=== PATIENT | male | born 2000 | race Caucasian/White ===

== ENCOUNTER 2022-01-14 21:36 | Emergency (ER) | payer OTHER ==
[2022-01-14] MEDS ORDERED: PROMETHAZINE INJ 25 MG/ML AMP ONE (22:02)
[2022-01-14] MEDS ORDERED: HYDROMORPHONE HCL 2 MG/ML inj ONE (22:03)
[2022-01-14] MEDS ORDERED: IBUPROFEN 400 MG TAB ONE (23:39)
[2022-01-14] MEDS ORDERED: ACETAMINOPHEN 500 MG TAB ONE (23:39)
--- NOTE | 2022-01-15 00:32 | ER ---
Nurse's Notes [facility] Name: oJe Manuel Age: 21 yrs Sex: Male : 2000 Arrival Date: 01/14/2022 Time: 21:40 Bed DIS5 Private MD: Diagnosis: Pain in left shoulder Presentation: 01/14 22:13 Chief complaint: Patient states: INJURED MY LEFT SHOULDER WORKING ON A BOAT ABOUT TWO 1 HOURS AGO. Coronavirus screen: Vaccine status: Patient reports receiving the 2nd dose of the covid vaccine. At this time, the client does not indicate any symptoms associated with coronavirus-19. Ebola Screen: Patient negative for fever greater than or equal to 101.5 degrees Fahrenheit, and additional compatible Ebola Virus Disease symptoms. Initial Sepsis Screen: Does the patient meet any 2 criteria? No. Patient's initial sepsis screen is negative. Does the patient have a suspected source of infection? No. Patient's initial sepsis screen is negative. Risk Assessment: Do you want to hurt yourself or someone else? Patient reports no desire to harm self or others. Onset of symptoms was January 14, 2022. 22:13 Method Of Arrival: Ambulatory [facility] 22:13 Acuity: OLGA 4 merged with [facility] Triage Assessment: 22:14 General: Appears in no apparent distress. uncomfortable, Behavior is calm, cooperative, merged with [facility] appropriate for age. Pain: Complains of pain in anterior aspect of left shoulder and left bicep. Musculoskeletal: Reports pain in right arm. Injury Description: CONTUSION. Historical: - Allergies: 22:14 NKDA; merged with [facility] - Home Meds: 22:14 None [Active]; 1 - PMHx: 22:14 None; merged with [facility] - PSHx: 22:14 None; merged with [facility] - Immunization history:: Adult Immunizations up to date. - Social history:: Smoking status: Reported history of juuling and/or vaping. Screenin:48 Abuse screen: Denies threats or abuse. Denies injuries from another. Nutritional 1 screening: No deficits noted. Tuberculosis screening: No symptoms or risk factors identified. Fall Risk None identified. Assessment: 23:48 General: Appears in no apparent distress. Behavior is appropriate for age. Pain: lp1 Complains of pain in left shoulder Pain currently is 7 out of 10 on a pain scale. Quality of pain is described as aching, Aggravated by increased activity. Neuro: Level of Consciousness is awake, alert, obeys commands, Oriented to person, place, time, situation. Cardiovascular: Patient's skin is warm and dry. Respiratory: Respiratory effort is even, unlabored. GI: No signs and/or symptoms were reported involving the gastrointestinal system. : No signs and/or symptoms were reported regarding the genitourinary system. EENT: No signs and/or symptoms were reported regarding the EENT system. Derm: Skin is pink, warm \T\ dry. Musculoskeletal: Circulation, motion, and sensation intact. Reports pain in left shoulder. Vital Signs: 22:13 BP 156 / 85; Pulse 70; Resp 18; Temp 99.1(TE); Pulse Ox 99% on R/A; Weight 131.54 kg; 1 Height 6 ft. 4 in. (193.04 cm); Pain 5/10; 22:13 Body Mass Index 35.30 (131.54 kg, 193.04 cm) merged [facility] ED Course: 21:40 Patient arrived in ED. ja2 22:14 Triage completed. 1 22:14 Arm band placed on right wrist. merged with [facility] 23:04 Mamadou Sexton PA is PHCP. cp 23:04 Mike Lakhani MD is Attending Physician. cp 23:49 Patient has correct armband on for positive identification. lp1 23:49 No provider procedures requiring assistance completed. Patient did not have IV access lp1 during this emergency room visit. 23:57 XRAY Shoulder LEFT 2 view In Process Unspecified. EDMS Administered Medications: 23:34 Drug: Ibuprofen 800 mg Route: PO; lp1 01/15 00:42 Follow up: Response: No adverse reaction merged [facility] 01/14 23:34 Drug: Tylenol 1000 mg Route: PO; lp1 01/15 00:42 Follow up: Response: No adverse reaction merged [facility] Medication: 01/14 23:49 VIS not applicable for this client. 1 Outcome: 01/15 00:31 Discharge ordered by . cp 00:42 Discharged to home ambulatory. merged [facility] 00:42 Condition: good 00:42 Discharge instructions given to patient, Instructed on discharge instructions, follow up and referral plans. Demonstrated understanding of instructions, follow-up care, medications, Prescriptions given X 1. 00:42 Patient left the ED. merged with [facility] Signatures: Dispatcher [employer] Cynthia Wallis RN RN 1 Mamadou Sexton PA PA cp Alexander, Jessica ja2 Hicks, Barbara, RN RN bh1
--- NOTE | 2022-01-15 00:33 | EDPHYS ---
Physician Documentation [facility] Name: Jeo Manuel Age: 21 yrs Sex: Male : 2000 Arrival Date: 01/14/2022 Time: 21:40 Bed DIS5 Private MD: ED Physician Mike Lakhani HPI: 01/14 23:05 This 21 yrs old Male presents to ER via Ambulatory with complaints of Shoulder Injury. cp 23:05 The patient or guardian complains of an injury, pain, that is acute. left shoulder. cp 23:05 Context: Patient reports he was at work using cheater bar when tension on bar suddenly cp forced shoulder upward. Patient reporting pain to left shoulder that radiates down arm. Historical: - Allergies: 22:14 NKDA; bh1 - Home Meds: 22:14 None [Active]; bh1 - PMHx: 22:14 None; bh1 - PSHx: 22:14 None; bh1 - Immunization history:: Adult Immunizations up to date. - Social history:: Smoking status: Reported history of juuling and/or vaping. ROS: 23:10 Constitutional: Negative for body aches, chills, fever, poor PO intake. cp 23:10 Neck: Negative for pain with movement, pain at rest, stiffness. cp 23:10 Cardiovascular: Negative for chest pain, edema, palpitations. 23:10 Back: Negative for pain at rest, pain with movement. 23:10 MS/extremity: Positive for pain, tenderness, of the left shoulder, Negative for decreased range of motion. 23:10 Respiratory: Negative for cough, shortness of breath, wheezing. cp 23:10 Eyes: Negative for injury, pain, redness, and discharge. cp 23:10 ENT: Negative for drainage from ear(s), ear pain, sore throat, difficulty swallowing, difficulty handling secretions. 23:10 Abdomen/GI: Negative for abdominal pain, nausea, vomiting, and diarrhea. 23:10 Neuro: Negative for altered mental status, dizziness, headache, numbness, syncope, weakness. 23:10 All other systems are negative. Exam: 23:15 Constitutional: The patient appears in no acute distress, alert, awake, cp non-diaphoretic, non-toxic, well developed, well nourished, obese. 23:15 Head/Face: Normocephalic, atraumatic. cp 23:15 Eyes: Periorbital structures: appear normal, Conjunctiva: normal, no exudate, no injection, Sclera: no appreciated abnormality, Lids and lashes: appear normal, bilaterally. 23:15 ENT: External ear(s): are unremarkable, Nose: is normal, Mouth: Lips: moist, Oral mucosa: moist, Posterior pharynx: Airway: no evidence of obstruction, patent. 23:15 Neck: C-spine: vertebral tenderness, is not appreciated, crepitus, is not appreciated, ROM/movement: is normal, is supple, without pain, no range of motions limitations. 23:15 Chest/axilla: Inspection: normal, Palpation: crepitus, is not appreciated, tenderness, that is mild, that is moderate, of the lateral left clavicle, that partially reproduces the patient's complaints. 23:15 Cardiovascular: Rate: normal, Rhythm: regular. 23:15 Respiratory: the patient does not display signs of respiratory distress, Respirations: normal, no use of accessory muscles, no retractions, labored breathing, is not present, Breath sounds: are clear throughout, no decreased breath sounds, no stridor, no wheezing. 23:15 Back: pain, is absent, ROM is normal. 23:15 Musculoskeletal/extremity: Extremities: grossly normal except: noted in the anterior aspect of left shoulder and lateral left shoulder: pain, tenderness, ROM: limited passive range of motion due to pain, in the left shoulder, Pulses: noted to be 2+ in the left radial artery, the left arm Sensation intact. 23:15 Neuro: Orientation: to person, place \T\ time. Mentation: is normal. Vital Signs: 22:13 BP 156 / 85; Pulse 70; Resp 18; Temp 99.1(TE); Pulse Ox 99% on R/A; Weight 131.54 kg; bh1 Height 6 ft. 4 in. (193.04 cm); Pain 5/10; 22:13 Body Mass Index 35.30 (131.54 kg, 193.04 cm) bh1 MDM: 23:10 Patient medically screened. cp 23:30 Differential diagnosis: tendonitis, clavicle fracture, AC joint injury, rotator cuff cp injury, dislocation. 01/15 00:08 Test interpretation: by ED physician or midlevel provider: xrays of left shoulder cp negative for fracture. 00:30 Data reviewed: vital signs, nurses notes, radiologic studies, plain films. cp 00:30 Counseling: I had a detailed discussion with the patient and/or guardian regarding: the cp historical points, exam findings, and any diagnostic results supporting the discharge/admit diagnosis, radiology results, the need for outpatient follow up, a orthopedic surgeon, to return to the emergency department if symptoms worsen or persist or if there are any questions or concerns that arise at home. Response to treatment: the patient's symptoms have mildly improved after treatment, and as a result, I will discharge patient. 01/14 23:09 Order name: XRAY Shoulder LEFT 2 view cp Administered Medications: 01/14 23:34 Drug: Ibuprofen 800 mg Route: PO; [facility] 01/15 00:42 Follow up: Response: No adverse reaction [facility] 01/14 23:34 Drug: Tylenol 1000 mg Route: PO; [facility] 01/15 00:42 Follow up: Response: No adverse reaction [facility] Disposition: 02:48 Co-signature as Attending Physician, Mike Lakhani MD I agree with the assessment and kdr plan of care. Disposition Summary: 01/15/22 00:31 Discharge Ordered Location: Home cp Problem: new cp Symptoms: have improved cp Condition: Stable cp Diagnosis - Pain in left shoulder cp Followup: cp - With: Private Physician - When: 2 - 3 days - Reason: Recheck today's complaints, recommend follow up with orthopedist Discharge Instructions: - Discharge Summary Sheet cp - Shoulder Pain cp - Shoulder Range of Motion Exercises cp - Form - Excuse from Work, School, or Physical Activity cp Forms: - Medication Reconciliation Form cp - Thank You Letter cp - Antibiotic Education cp - Prescription Opioid Use cp Prescriptions: - Diclofenac Sodium 75 mg Oral Tablet Sustained Release - take 1 tablet by ORAL route 2 times per day; 30 tablet; Refills: 0, Product cp Selection Permitted Signatures: Dispatcher [employer] Mike Root MD MD [facility] Cynthia Truong RN RN 1 Mamadou Sexton PA PA cp Jesica Chong, RN RN 1
[2022-01-15 01:07] VITALS: BP 156/85; TEMP 99.1; O2SAT 99
--- NOTE | 2022-01-15 11:05 | RAD REPORT ---
EXAM DESCRIPTION: X Ray Shoulder Left 2 View; 2 views CLINICAL HISTORY: 21 years Male, PAIN COMPARISON: None. FINDINGS/IMPRESSION: 1. No acute fracture. 2. Humeral head projects over the glenoid in these frontal views. Electronically signed by: Scott Payne MD 01/15/2022 2:30 AM CDT Due to temporary technical issues with the PACS/Fluency reporting system, reports are being signed by the in house radiologists without review as a courtesy to insure prompt reporting. The interpreting radiologist is fully responsible for the content of the report.
== END 2022-01-15 00:42 | disposition home or self-care (01) ==
LOC: ER 21:36
DX: M25.512 Pain in left shoulder (principal)
CPT/HCPCS: 73030; J2550; J1170; 99283

== ENCOUNTER 2022-11-04 04:31 | Emergency (ER) | payer OTHER ==
[2022-11-04] MEDS ORDERED: TRAMADOL HCL 50 MG TAB ONE (05:24)
[2022-11-04] MEDS ORDERED: methocarbamoL 750 MG TAB ONE (05:24)
[2022-11-04] MEDS ORDERED: IBUPROFEN 400 MG TAB ONE (05:25)
--- NOTE | 2022-11-04 06:45 | ER ---
Nurse's Notes [facility] Name: Joe Manuel Age: 22 yrs Sex: Male : 2000 Arrival Date: 11/04/2022 Time: 04:31 Bed 13 Private MD: Diagnosis: Contusion of right shoulder;Acute right shoulder sprain Presentation: 11/04 04:49 Chief complaint: Patient states: fell on right shoulder while at work x 3 weeks ago kl reports pain increasing full ROM noted. Coronavirus screen: Vaccine status: Patient reports receiving the 2nd dose of the covid vaccine. Ebola Screen: Patient negative for fever greater than or equal to 101.5 degrees Fahrenheit, and additional compatible Ebola Virus Disease symptoms. Initial Sepsis Screen: Does the patient meet any 2 criteria? No. Patient's initial sepsis screen is negative. Does the patient have a suspected source of infection? No. Patient's initial sepsis screen is negative. Risk Assessment: Do you want to hurt yourself or someone else? Patient reports no desire to harm self or others. 04:49 Method Of Arrival: Ambulatory 04:49 Acuity: OLGA 4 Triage Assessment: 04:51 General: Appears in no apparent distress. comfortable, Behavior is calm, cooperative. Pain: Complains of pain in anterior aspect of right shoulder Pain radiates to right elbow Pain currently is 6 out of 10 on a pain scale. Quality of pain is described as aching, shooting. Musculoskeletal: Circulation, motion, and sensation intact. Capillary refill < 3 seconds, Range of motion: intact in all extremities, Reports pain in right shoulder. Injury Description: fall. Historical: - Allergies: 04:50 NKDA; kl - Home Meds: 04:50 None [Active]; kl - PMHx: 04:50 None; kl - Immunization history:: Adult Immunizations up to date. - Social history:: Smoking status: Patient denies any tobacco usage or history of. - Family history:: not pertinent. Screenin:[facility] ED Fall Risk Assessment (Adult) History of falling in the last 3 months, vc1 including since admission Yes- single mechanical fall (1 pt) Confusion or Disorientation No (0 pts) Intoxicated or Sedated No (0 pts) Impaired Gait No (0 pts) Mobility Assist Device Used No (0 pt) Altered Elimination No (0 pt) Score/Fall Risk Level 0 - 2 = Low Risk Oriented to surroundings, Maintained a safe environment, Educated pt \T\ family on fall prevention, incl call for assistance when getting out of bed. Abuse screen: Denies threats or abuse. Nutritional screening: No deficits noted. Tuberculosis screening: No symptoms or risk factors identified. Assessment: 05:00 Reassessment: No changes from previously documented assessment. Patient and/or family vc1 updated on plan of care and expected duration. Pain level reassessed. Patient is alert, oriented x 3, equal unlabored respirations, skin warm/dry/pink. see triage assessment. 06:00 Reassessment: No changes from previously documented assessment. Patient and/or family vc1 updated on plan of care and expected duration. Pain level reassessed. Patient is alert, oriented x 3, equal unlabored respirations, skin warm/dry/pink. 06:34 Reassessment: Patient and/or family updated on plan of care and expected duration. Pain vc1 level reassessed. Patient is alert, oriented x 3, equal unlabored respirations, skin warm/dry/pink. Patient states feeling better. Patient states symptoms have improved. Vital Signs: 04:49 BP 143 / 88; Pulse 75; Resp 18; Temp 98.8(O); Pulse Ox 95% on R/A; Weight 131.54 kg kl (R); Height 6 ft. 3 in. ; Pain 6/10; 05:00 BP 121 / 65; Pulse 75; Resp 18; Pulse Ox 91% on R/A; vc1 06:00 BP 109 / 79; Pulse 64; Resp 17; Pulse Ox 96% on R/A; vc1 04:49 Body Mass Index 36.25 (131.54 kg, 190.5 cm) kl 04:49 Pain Scale: Adult kl ED Course: 04:33 Patient arrived in ED. jj6 04:45 Todd Ordonez MD is Attending Physician. sp4 04:50 Triage completed. kl 05:00 Gissel Genao, BETH is Primary Nurse. vc1 05:00 Arm band placed on right wrist. vc1 05:00 Patient has correct armband on for positive identification. Bed in low position. Call vc1 light in reach. Pulse ox on. NIBP on. 05:09 Shoulder Right (2 View) XRAY In Process Unspecified. EDMS 06:44 Jhon Chappell MD is Referral Physician. sp4 07:11 No provider procedures requiring assistance completed. Patient did not have IV access ko1 during this emergency room visit. Sling applied to right arm. Administered Medications: 05:24 Drug: Ibuprofen PO 800 mg Route: PO; vc1 05:24 Drug: traMADol PO 100 mg Route: PO; vc1 05:24 Drug: Methocarbamol PO 1500 mg Route: PO; vc1 Medication: 06:37 VIS not applicable for this client. vc1 Outcome: 06:45 Discharge ordered by . sp4 07:11 Discharged to home ambulatory. ko1 07:11 Condition: stable 07:11 Discharge instructions given to patient, Instructed on discharge instructions, follow up and referral plans. medication usage, Demonstrated understanding of instructions, follow-up care, medications, Prescriptions given X 2. 07:11 Patient left the ED. ko1 Signatures: Dispatcher [employer] EDDC Racheal Vick RN RN kl Jeffries, Jennifer jj6 Gissel Genao RN RN vc1 Chloé House RN RN ko1 Todd Ordonez MD MD sp4
--- NOTE | 2022-11-04 06:45 | EDPHYS ---
Physician Documentation [facility] Name: Joe Manuel Age: 22 yrs Sex: Male : 2000 Arrival Date: 11/04/2022 Time: 04:31 Bed 13 Private MD: ED Physician Todd Ordonez HPI: 11/04 04:45 This 22 yrs old Male presents to ER via Unassigned with complaints of sp4 Shoulder Injury. 06:31 The patient has not experienced similar symptoms in the past. Patient presents with 3 sp4 weeks of the right shoulder pain after acute fall at work. Patient states he fell backward landing on his right shoulder which caused him to develop right shoulder pain worse with movement of the right shoulder. There was no deformity or dislocation during acute fall. Pain has worsened recently prompting visit to the ER . Historical: - Allergies: 04:50 NKDA; kl - Home Meds: 04:50 None [Active]; kl - PMHx: 04:50 None; kl - Immunization history:: Adult Immunizations up to date. - Social history:: Smoking status: Patient denies any tobacco usage or history of. - Family history:: not pertinent. ROS: 06:31 Constitutional: Negative for fever, chills, and weight loss, Eyes: Negative for injury, sp4 pain, redness, and discharge, ENT: Negative for injury, pain, and discharge, Neck: Negative for injury, pain, and swelling, Cardiovascular: Negative for chest pain, palpitations, and edema, Respiratory: Negative for shortness of breath, cough, wheezing, and pleuritic chest pain, Abdomen/GI: Negative for abdominal pain, nausea, vomiting, diarrhea, and constipation, Back: Negative for injury and pain, : Negative for injury, bleeding, discharge, and swelling, MS/Extremity: Positive for right shoulder injury positive for right shoulder pain otherwise negative Skin: Negative for injury, rash, and discoloration, Neuro: Negative for headache, weakness, numbness, tingling, and seizure, Psych: Negative for depression, anxiety, Allergy/Immunology: Negative for hives, rash, and allergies Endocrine: Negative for neck swelling, polydipsia, polyuria, polyphagia, and weight changes Hematologic/Lymphatic: Negative for swollen nodes, abnormal bleeding, and unusual bruising Exam: 06:31 Constitutional: This is a well developed, well nourished patient who is awake, alert, sp4 and in no acute distress. Head/Face: Normocephalic, atraumatic. Eyes: Pupils equal round and reactive to light, extra-ocular motions intact. Lids and lashes normal. Conjunctiva and sclera are not injected. Cornea within normal limits. Periorbital areas with no swelling, redness, or edema. ENT: Nares patent. No nasal discharge, no septal abnormalities noted. Tympanic membranes are normal and external auditory canals are clear. Oropharynx with no redness, swelling, or masses, exudates, or evidence of obstruction, uvula midline. Mucous membranes moist. Neck: Trachea midline, no thyromegaly or masses palpated, and no cervical lymphadenopathy. Supple, full range of motion without nuchal rigidity, or vertebral point tenderness. No Meningismus. Chest/axilla: Normal chest wall appearance and motion. Nontender with no deformity. No lesions are appreciated. Cardiovascular: Regular rate and rhythm with a normal S1 and S2. No gallops, murmurs, or rubs. Normal PMI, no JVD. No pulse deficits. Respiratory: Lungs have equal breath sounds bilaterally, clear to auscultation and percussion. No rales, rhonchi or wheezes noted. No increased work of breathing, no retractions or nasal flaring. Abdomen/GI: Soft, non-tender, with normal bowel sounds. No distension or tympany. No guarding or rebound. No evidence of tenderness throughout. Back: No spinal tenderness. No costovertebral tenderness. Male : Normal genitalia with no discharge or lesions. Skin: Warm, dry with normal turgor. Normal color with no rashes, no lesions, and no evidence of cellulitis. MS/ Extremity: Pulses equal, no cyanosis. Neurovascular intact. Full, normal range of motion. Neuro: Awake and alert, GCS 15, oriented to person, place, time, and situation. Cranial nerves II-XII grossly intact. Motor strength 5/5 in all extremities. Sensory grossly intact. Psych: Awake, alert, with orientation to person, place and time. Behavior, mood, and affect are within normal limits Vital Signs: 04:49 BP 143 / 88; Pulse 75; Resp 18; Temp 98.8(O); Pulse Ox 95% on R/A; Weight 131.54 kg kl (R); Height 6 ft. 3 in. ; Pain 6/10; 05:00 BP 121 / 65; Pulse 75; Resp 18; Pulse Ox 91% on R/A; vc1 06:00 BP 109 / 79; Pulse 64; Resp 17; Pulse Ox 96% on R/A; vc1 04:49 Body Mass Index 36.25 (131.54 kg, 190.5 cm) kl 04:49 Pain Scale: Adult kl MDM: 04:50 Patient medically screened. sp4 06:31 Differential diagnosis: humeral head fracture, glenoid fracture. Data reviewed: vital sp4 signs, nurses notes. 06:42 Consideration of Admission/Observation Escalation of care including sp4 admission/observation considered. ED course: X-ray revealed no acute bony abnormality, patient advised arm sling for 2 weeks, no work with right arm for 2 weeks, as needed ibuprofen and Flexeril as needed for pain or muscle soreness. 11/04 04:50 Order name: Shoulder Right (2 View) XRAY sp4 11/04 06:30 Order name: Sling; Complete Time: 06:58 sp4 Administered Medications: 05:24 Drug: Ibuprofen PO 800 mg Route: PO; vc1 05:24 Drug: traMADol PO 100 mg Route: PO; vc1 05:24 Drug: Methocarbamol PO 1500 mg Route: PO; vc1 Disposition Summary: 11/04/22 06:45 Discharge Ordered Location: Home sp4 Problem: new sp4 Symptoms: have improved sp4 Condition: Stable sp4 Diagnosis - Contusion of right shoulder sp4 - Acute right shoulder sprain sp4 Followup: sp4 - With: Jhon Chappell MD - When: 7 - 10 days - Reason: Recheck today's complaints Discharge Instructions: - Discharge Summary Sheet sp4 - Contusion, [id number] sp4 Forms: - Thank You Letter sp4 Prescriptions: - Ibuprofen 800 mg Oral Tablet - take 1 tablet by ORAL route every 8 hours As needed take with food; 30 tablet; sp4 Refills: 0, Product Selection Permitted - Cyclobenzaprine 10 mg Oral Tablet - take 1 tablet by ORAL route every 8 hours As needed; 30 tablet; Refills: 0, sp4 Product Selection Permitted Signatures: Dispatcher [employer] EDRacheal Wu RN RN kl Calcote, Vanessa, RN RN vc1 Todd Ordonez, MD sp4
[2022-11-04 07:15] VITALS: TEMP 98.8
[2022-11-04 07:17] VITALS: BP 109/79; O2SAT 96
--- NOTE | 2022-11-05 15:05 | RAD REPORT ---
EXAM DESCRIPTION: RAD - Shoulder Right 2 View - 11/04/2022 5:07 am CLINICAL HISTORY: 22 years Male R shoulder injury Shoulder Right 2 View COMPARISON: None FINDINGS: 2 views of the right shoulder. Normal mineralization. No acute fracture or dislocation. Joint spaces are maintained. Imaged lungs are clear. IMPRESSION: No acute bony finding of the right shoulder. Electronically signed by: Debbie Gil MD 11/04/2022 5:16 AM CDT Due to temporary technical issues with the PACS/Fluency reporting system, reports are being signed by the in house radiologist without review as a courtesy to ensure prompt reporting. The interpreting r adiologist is fully responsible for the content of the report.
== END 2022-11-04 07:11 | disposition home or self-care (01) ==
LOC: ER 04:31
DX: S43.401A Unspecified sprain of right shoulder joint, initial encounter (principal); S40.011A Contusion of right shoulder, initial encounter; W19.XXXA Unspecified fall, initial encounter; Y92.89 Other specified places as the place of occurrence of the external cause; Y99.0 Civilian activity done for income or pay
CPT/HCPCS: 99284